=== PATIENT | female | born 1980 | race Caucasian/White ===

== ENCOUNTER 2017-02-09 21:46 | Emergency (ER) | payer OTHER ==
[2017-02-09 21:53] VITALS: BMI 29.2
--- NOTE | 2017-02-09 23:04 | DR.GENAD ---
HPI - PCP Primary Care Physician: jose busby - HPI Comment HPI Comment: PATIENT PASS OUT AT HOME TONIGHT. HAVING SEVERE HEADACHE SINCE. BEING HAVING HEADACHE BUT TONIGHT WORSE HEADACHE EVER. NO FEVER, NAUSEA OR VOMITING. NO DYSURIA. - Complaint/Symptoms Chief Complaint Doctors Comments: HEADACHE, PASS OUT. Chief Complaint:: PATIENT REPORTS THAT SHE WAS GETTING UP OUT OF BED AND WAS ANGRY AT HER SON AND BLACKED OUT. DENIES DIZZINESS. ADMITS TO HEADACHE. DENIES HEAD TRAUMA. - Nurses notes reviewed Nurses Notes Review: Yes - Source History Provided: Patient - Mode of Arrival Mode of Arrival: Ambulatory - Timing Onset of Chief Complaint: 02/09/17 Came on: Suddenly - Duration Duration: Since Onset Duration: Hours - Severity Severity: Moderate PMH - PMH Past Medical History: Yes Past Medical History: Seizures Past Surgical History: Yes Surgical History: Cholecystectomy, Hysterectomy - Family History History of Family Medical Conditions: Yes Family Medical History: Diabetes Mellitus - Social History Alcohol Use: None Do you use any recreational Drugs:: No Lives With: Family - infectious screening In the last 2 months have you had wt loss of >10#?: NO Have you had fever, night sweats or hemotysis?: No Have you traveled outside the country in the last 6 months?: No Isolation: Standard ROS - Review of Systems Constitutional: Weakness, Fatigue. negative: Chills, Fever Eyes: No Symptoms Reported. negative: Eye Pain, Discharge ENTM: No Symptoms Reported Respiratoy: No Symptoms Reported Cardiovascular: No Symptoms Reported Gastrointestinal/Abdominal: No Symptoms Reported Genitourinary: No Symptoms Reported Neurological: No Symptoms Reported Musculoskeletal: No Symptoms Reported Integumentary: No Symptoms Reported Hematologic/Lymphatic: No Symptoms Reported Endocrine: No Symptoms Reported All Other Systems: Reviewed and Negative PE - Vital Signs Vitals: Temperature 99.6 F Pulse Rate [Apical] 68 Pulse Rate 102 Respiratory Rate 16 Blood Pressure [Right Arm] 129/87 Blood Pressure 145/90 O2 Sat by Pulse Oximetry 100 - General Limitations: No Limitations General Appearance: Alert - Head Head Exam: Normal Inspection - Eyes Eye exam: Normal Appearance - ENT ENT Exam: Normal External Ear Exam External Ear Exam: Normal External Inspection TM/Canal Exam: Bilateral Normal Nose Exam: Normal Nose Exam Mouth Exam: Normal Inspection Throat Exam: Normal Inspection - Neck Neck Exam: Normal Inspection - Chest Chest Inspection: Symmetric Chest Wall Rise - Respiratory Respiratory Exam: Normal Lung Sounds Bilat Respiratory Exam: Bilateral Clear to Auscultation - Cardiovascular Cardiovascular Exam: Regular Rate, Normal Rhythm, Normal Heart Sounds - Abdominal Exam Abdominal Exam: Normal Bowel Sounds, Soft. negative: Tenderness - Extremities Extremities Exam: Normal Inspection - Back Back Exam: Normal Inspection - Neurologic Neurological Exam: Alert, Oriented X3, CN II-XII Intact, Normal Gait, Reflexes Normal. negative: Motor Sensory Deficit - Psychiatric Psychiatric Exam: Normal Affect, Normal Mood - Skin Skin Exam: Normal Color MDM - Differential Diagnosis Differential Diagnosis: SYNCOPAL EPISODE, HEADACHE, TIA, [place], Course - Treatment Treatment: SEE ORDERS. - Education/Counseling Education/Counseling: Patient, Education Educated On: Treatment, Diagnosis, Needs for Follow Up ROR - Labs Reviewed Laboratory Results Reviewed?: Yes Result Diagrams: 02/09/17 23:15 02/09/17 23:15 Laboratory: WBC 9.0 X10^3/uL (3.6-10.0) 02/09/17 23:15 RBC 4.30 X10^6/uL (3.5-5.4) 02/09/17 23:15 Hgb 13.0 g/dL (12.0-16.0) 02/09/17 23:15 Hct 36.6 % (36.0-47.0) 02/09/17 23:15 MCV 85.1 fL (80.0-100.0) 02/09/17 23:15 MCH 30.4 pg (27.0-34.0) 02/09/17 23:15 MCHC 35.7 g/dL (33.0-35.0) H 02/09/17 23:15 RDW 12.9 % (11.6-16.5) 02/09/17 23:15 Plt Count 354 X10^3/uL (150.0-450.0) 02/09/17 23:15 MPV 8.0 fL (7.4-11.0) 02/09/17 23:15 Neut % 66.1 % (42.0-75.0) 02/09/17 23:15 Lymph % 23.9 % (21.0-51.0) 02/09/17 23:15 [place] % 7.9 % (0.0-13.0) 02/09/17 23:15 Eos % 1.4 % (0.9-2.9) 02/09/17 23:15 Baso % 0.7 % (0.2-1.0) 02/09/17 23:15 Neut # 5.9 x10^3/uL (2.2-4.8) H 02/09/17 23:15 Lymph # 2.1 X10^3/uL (1.3-2.9) 02/09/17 23:15 [place] # 0.7 x10^3/uL (0.3-0.8) 02/09/17 23:15 Eos # 0.1 x10^3/uL (0.0-0.2) 02/09/17 23:15 Baso # 0.1 X10^3/uL (0.0-0.1) 02/09/17 23:15 Absolute Nucleated RBC 0.1 /100WBC 02/09/17 23:15 Sodium 142 mmol/L (136-145) 02/09/17 23:15 Corrected Sodium TNP 02/09/17 23:15 Potassium 3.5 mmol/L (3.5-5.1) 02/09/17 23:15 Chloride 105 mmol/L (98-107) 02/09/17 23:15 Carbon Dioxide 27.4 mmol/L (21-32) 02/09/17 23:15 BUN 8 mg/dL (7-18) 02/09/17 23:15 Creatinine 0.93 mg/dL (0.55-1.02) 02/09/17 23:15 Est GFR (MDRD) Af Amer > 60 (>60) 02/09/17 23:15 Est GFR (MDRD) Non-Af > 60 (>60) 02/09/17 23:15 Glucose 104 mg/dL (65-99) H 02/09/17 23:15 Calcium 8.7 mg/dL (8.5-10.1) 02/09/17 23:15 Corrected Calcium TNP 02/09/17 23:15 Total Bilirubin 0.40 mg/dL (0.2-1.0) 02/09/17 23:15 AST 16 Units/L (15-37) 02/09/17 23:15 ALT 20 Units/L (12-78) 02/09/17 23:15 Alkaline Phosphatase 60 Units/L (46-116) 02/09/17 23:15 Creatine Kinase 52 Units/L (26-192) 02/09/17 23:15 CK-MB (CK-2) < 1.0 ng/mL (0-4.0) 02/09/17 23:15 CK/CKMB % Calc 1.9 % (<4) 02/09/17 23:15 Troponin I < 0.02 ng/mL (0-1.5) 02/09/17 23:15 Total Protein 6.9 g/dL (6.4-8.2) 02/09/17 23:15 Albumin 3.5 g/dL (3.4-5.0) 02/09/17 23:15 Globulin 3.4 g/dL (2.5-4.5) 02/09/17 23:15 Albumin/Globulin Ratio 1.0 Ratio (1.1-2.1) L 02/09/17 23:15 - XRAY XRAY Interpreted by: Radiologist XRAY Findings: REPORT DISCUSS WITH PATIENT. - EKG Rhythm: NSR (EKG NOTED) - Diagnosis Discharge Problem: Syncope Qualifiers: Syncope type: unspecified Qualified Code(s): R55 - Syncope and collapse Headache Qualifiers: Headache type: unspecified Headache chronicity pattern: acute headache Intractability: intractable Qualified Code(s): R51 - Headache - Discharge Plan Disposition: 01 HOME, SELF-CARE Condition: Stable - Follow ups/Referrals Follow ups/Referrals: NFD,None [Primary Care Provider] - 3 days MIGUELINA SOLIZ [STAFF PHYSICIAN] - 3 days - Instructions Instructions: Headache and Arthritis, Syncope, Eixf-ag-Pawy Additional Instructions: RETURN TO ED IF WORSE.
[2017-02-09 23:24] LABS: BASOPHILS # (AUTO) 0.1 X10^3/uL (0.0-0.1); BASOPHILS % (AUTO) 0.7 % (0.2-1.0); EOSINOPHILS # (AUTO) 0.1 x10^3/uL (0.0-0.2); EOSINOPHILS % (AUTO) 1.4 % (0.9-2.9); HEMATOCRIT 36.6 % (36.0-47.0); LYMPHOCYTES # (AUTO) 2.1 X10^3/uL (1.3-2.9); LYMPHOCYTES % (AUTO) 23.9 % (21.0-51.0); MEAN CORPUSCULAR HEMOGLOBIN 30.4 pg (27.0-34.0); MEAN CORPUSCULAR HGB CONC 35.7 g/dL (33.0-35.0); MEAN CORPUSCULAR VOLUME 85.1 fL (80.0-100.0); MONOCYTES # (AUTO) 0.7 x10^3/uL (0.3-0.8); MONOCYTES % (AUTO) 7.9 % (0.0-13.0); NEUTROPHILS # (AUTO) 5.9 x10^3/uL (2.2-4.8); NEUTROPHILS % (AUTO) 66.1 % (42.0-75.0); PLATELET COUNT 354 X10^3/uL (150.0-450.0); RED CELL DISTRIBUTION WIDTH 12.9 % (11.6-16.5)
[2017-02-09 23:37] LABS: BLOOD UREA NITROGEN 8 mg/dL (7-18); CALCIUM 8.7 mg/dL (8.5-10.1); CARBON DIOXIDE 27.4 mmol/L (21-32); CHLORIDE 105 mmol/L (98-107); CREATININE 0.93 mg/dL (0.55-1.02); SODIUM 142 mmol/L (136-145); TROPONIN I < 0.02 ng/mL (0-1.5); eGFR BLACK RACES > 60 (>60); eGFR NON BLACK RACES > 60 (>60)
--- NOTE | 2017-02-09 23:40 | CT ---
EXAM: CT BRAIN WITHOUT CONTRAST INDICATION: Headache COMPARISION: No Priors TECHNIQUE: Routine axial CT of the brain was performed without intravenous contrast. FINDINGS: The cerebral and cerebellar cortex are normal. The ventricular system is nondilated. No intra or extr a-axial mass or hemorrhage. The schafer-white junction is preserved. There is no evidence of subacute is chemic change. The basilar cisterns are clear. The skull is intact. The mastoid air cells are clear. IMPRESSION: Normal brain CT examination Reported By:
[2017-02-09 23:42] LABS: ALANINE AMINOTRANSFERASE 20 Units/L (12-78); ALBUMIN 3.5 g/dL (3.4-5.0); ALKALINE PHOSPHATASE 60 Units/L (46-116); ASPARTATE AMINO TRANSFERASE 16 Units/L (15-37); CKMB % 1.9 % (<4); CREATINE KINASE 52 Units/L (26-192); CREATINE KINASE MB < 1.0 ng/mL (0-4.0); TOTAL PROTEIN 6.9 g/dL (6.4-8.2)
[2017-02-10 00:04] VITALS: BP 129/87
== END 2017-02-10 00:01 | disposition home or self-care (01) ==
LOC: ER 21:46
DX: R55 Syncope and collapse (principal); R51 Headache
CPT/HCPCS: 36415; 70450; 80053; 82550; 82553; 84484; 85025; 93005; 93010; 96365; 99283

== ENCOUNTER 2017-05-04 13:08 | Emergency (ER) | payer OTHER ==
[2017-05-04 13:15] VITALS: BP 129/79; BMI 31.7
[2017-05-04 13:39] LABS: ALANINE AMINOTRANSFERASE 32 Units/L (12-78); ALBUMIN 3.9 g/dL (3.4-5.0); ALKALINE PHOSPHATASE 77 Units/L (46-116); ASPARTATE AMINO TRANSFERASE 19 Units/L (15-37); BLOOD UREA NITROGEN 11 mg/dL (7-18); CHLORIDE 103 mmol/L (98-107); CREATININE 0.83 mg/dL (0.55-1.02); SODIUM 138 mmol/L (136-145); eGFR BLACK RACES > 60 (>60); eGFR NON BLACK RACES > 60 (>60)
--- NOTE | 2017-05-04 13:41 | DR.SEIZA ---
HPI - Time Seen Time seen: 13:35 - Primary Care Physician Primary Care Physician: jose busby - Complaints Chief Complaint Doctors Comments: Patient reports that she was at work and felt weak and reported that she felt like she was going to have a seizure. She has a history of seizure disorder but has been out of her medication for 2-3 weeks. She take dilantid tid. She has not seen a physician in a while. She does not remember remember seeing a neurologist. Chief Complaint:: patient stated she was at work and had a seizure. patient stated she is supposed to be on dilantin, but has been out for the last 3 days but has a apointment with her pcp tomorrow. - Source History Provided: Patient - Mode of Arrival Mode of Arrival: EMS - Timing Onset of Chief Complaint: 05/04/17 PMH - PMH Past Medical History: Yes Past Medical History: Seizures Past Surgical History: Yes Surgical History: Cholecystectomy, Hysterectomy - Family History History of Family Medical Conditions: Yes Family Medical History: Diabetes Mellitus - Social History Does patient currently use any type of tobacco product: No Have you used tobacco products in the last 12 months: No Type of Tobacco Use: None Does any household member use tobacco: No Alcohol Use: None Do you use any recreational Drugs:: No Lives With: Family Lives Where: Home - infectious screening In the last 2 months have you had wt loss of >10#?: NO Have you had fever, night sweats or hemotysis?: No Have you traveled outside the country in the last 6 months?: No Isolation: Standard ROS - Review of Systems Eyes: No Symptoms Reported ENTM: No Symptoms Reported Respiratoy: No Symptoms Reported Cardiovascular: No Symptoms Reported Gastrointestinal/Abdominal: No Symptoms Reported Genitourinary: No Symptoms Reported Neurological: No Symptoms Reported Musculoskeletal: No Symptoms Reported Integumentary: No Symptoms Reported Hematologic/Lymphatic: No Symptoms Reported Endocrine: No Symptoms Reported Psychiatric: No Symptoms Reported All Other Systems: Reviewed and Negative PE - Vital Signs Vitals: Temperature 98.7 F Pulse Rate 91 Respiratory Rate 16 Blood Pressure [Right Arm] 129/87 Blood Pressure 129/79 O2 Sat by Pulse Oximetry 98 - General Limitations: No Limitations General Appearance: Alert, In No Apparent Distress - Head Head Exam: Normal Inspection, Atraumatic Head Exam Physical: negative: Laceration, Abrasion, Contusion, Hematoma, Raccoon Eyes, Vernon's Sign, Tenderness of Temporal Artery, CSF Rhinorrhea, CSF Otorrhea, Other - Eyes Eye exam: Normal Appearance, PERRL, EOMI Eyelids: Normal Inspection: Bilateral Pupils: Regular, Round: Bilateral Sclera/Conjunctival: Normal Inspection: Bilateral Anterior Chamber: Normal Inspection: Bilateral - ENT ENT Exam: Normal Exam, Normal Oropharynx, Normal External Ear Exam Mouth Exam: Normal Inspection - Neck Neck Exam: Normal Inspection, Full ROM - Chest Chest Inspection: Normal Inspection - Respiratory Respiratory Exam: Normal Lung Sounds Bilat Respiratory Exam: Bilateral Clear to Auscultation - Cardiovascular Cardiovascular Exam: Regular Rate, Normal Rhythm - Abdominal Exam Abdominal Exam: Normal Inspection Abdominal Tenderness: LLQ, Suprapubic. negative: RUQ, RLQ, LUQ, Epigastrium, Diffuse, Mild, Moderate, Severe, Other - Extremities Extremities Exam: Normal Inspection, Full ROM - Back Back Exam: Normal Inspection, Full ROM - Neurologic Neurological Exam: Alert, Oriented X3, CN II-XII Intact Speech: Fluid Speech Cranial Nerve Exam: EOM Function (II, III, IV, ): Normal Cerebellar Function: Finger to Nose: Normal, Heel to Martin: Normal Cerebellar Function: Normal Gait Motor Strength - RUE: 3/5 Motor Strength - LLE: 3/5 - Psychiatric Psychiatric Exam: Normal Affect, Normal Mood - Skin Skin Exam: Warm, Dry, Intact Course - Treatment Treatment: Pheyntoin ~ 10mg/kg - Reevaluation 1st: Improved - Education/Counseling Educated On: Treatment, Diagnosis, Prognosis, Needs for Follow Up ROR - Labs Reviewed Laboratory Results Reviewed?: Yes (phenytoin level 0.08) Result Diagrams: 05/04/17 13:18 05/04/17 13:18 Laboratory: WBC 8.0 X10^3/uL (3.6-10.0) 05/04/17 13:18 RBC 4.73 X10^6/uL (3.5-5.4) 05/04/17 13:18 Hgb 14.4 g/dL (12.0-16.0) 05/04/17 13:18 Hct 40.4 % (36.0-47.0) 05/04/17 13:18 MCV 85.5 fL (80.0-100.0) 05/04/17 13:18 MCH 30.4 pg (27.0-34.0) 05/04/17 13:18 MCHC 35.6 g/dL (33.0-35.0) H 05/04/17 13:18 RDW 12.6 % (11.6-16.5) 05/04/17 13:18 Plt Count 338 X10^3/uL (150.0-450.0) 05/04/17 13:18 MPV 8.6 fL (7.4-11.0) 05/04/17 13:18 Neut % 59.3 % (42.0-75.0) 05/04/17 13:18 Lymph % 26.4 % (21.0-51.0) 05/04/17 13:18 [place] % 8.5 % (0.0-13.0) 05/04/17 13:18 Eos % 4.4 % (0.9-2.9) H 05/04/17 13:18 Baso % 1.4 % (0.2-1.0) H 05/04/17 13:18 Neut # 4.7 x10^3/uL (2.2-4.8) 05/04/17 13:18 Lymph # 2.1 X10^3/uL (1.3-2.9) 05/04/17 13:18 [place] # 0.7 x10^3/uL (0.3-0.8) 05/04/17 13:18 Eos # 0.4 x10^3/uL (0.0-0.2) H 05/04/17 13:18 Baso # 0.1 X10^3/uL (0.0-0.1) 05/04/17 13:18 Absolute Nucleated RBC 0.1 /100WBC 05/04/17 13:18 Sodium 138 mmol/L (136-145) 05/04/17 13:18 Corrected Sodium TNP 05/04/17 13:18 Potassium 3.9 mmol/L (3.5-5.1) 05/04/17 13:18 Chloride 103 mmol/L (98-107) 05/04/17 13:18 Carbon Dioxide 26.0 mmol/L (21-32) 05/04/17 13:18 BUN 11 mg/dL (7-18) 05/04/17 13:18 Creatinine 0.83 mg/dL (0.55-1.02) 05/04/17 13:18 Est GFR (MDRD) Af Amer > 60 (>60) 05/04/17 13:18 Est GFR (MDRD) Non-Af > 60 (>60) 05/04/17 13:18 Glucose 98 mg/dL (65-99) 05/04/17 13:18 Calcium 9.0 mg/dL (8.5-10.1) 05/04/17 13:18 Corrected Calcium TNP 05/04/17 13:18 Total Bilirubin 0.80 mg/dL (0.2-1.0) 05/04/17 13:18 AST 19 Units/L (15-37) 05/04/17 13:18 ALT 32 Units/L (12-78) 05/04/17 13:18 Alkaline Phosphatase 77 Units/L (46-116) 05/04/17 13:18 Total Protein 8.0 g/dL (6.4-8.2) 05/04/17 13:18 Albumin 3.9 g/dL (3.4-5.0) 05/04/17 13:18 Globulin 4.1 g/dL (2.5-4.5) 05/04/17 13:18 Albumin/Globulin Ratio 1.0 Ratio (1.1-2.1) L 05/04/17 13:18 Phenytoin 0.8 ug/mL (10-20) L 05/04/17 13:18 - Diagnosis Discharge Problem: Seizure disorder, Seizure secondary to subtherapeutic anticonvulsant medication - Discharge Plan Condition: Stable - Follow ups/Referrals Follow ups/Referrals: NFD,None [Primary Care Provider] - 3 days - Instructions
[2017-05-04 13:42] LABS: BASOPHILS # (AUTO) 0.1 X10^3/uL (0.0-0.1); BASOPHILS % (AUTO) 1.4 % (0.2-1.0); EOSINOPHILS # (AUTO) 0.4 x10^3/uL (0.0-0.2); EOSINOPHILS % (AUTO) 4.4 % (0.9-2.9); HEMATOCRIT 40.4 % (36.0-47.0); HEMOGLOBIN 14.4 g/dL (12.0-16.0); LYMPHOCYTES # (AUTO) 2.1 X10^3/uL (1.3-2.9); LYMPHOCYTES % (AUTO) 26.4 % (21.0-51.0); MEAN CORPUSCULAR HEMOGLOBIN 30.4 pg (27.0-34.0); MEAN CORPUSCULAR HGB CONC 35.6 g/dL (33.0-35.0); MEAN CORPUSCULAR VOLUME 85.5 fL (80.0-100.0); MEAN PLATELET VOLUME 8.6 fL (7.4-11.0); MONOCYTES # (AUTO) 0.7 x10^3/uL (0.3-0.8); MONOCYTES % (AUTO) 8.5 % (0.0-13.0); NEUTROPHILS # (AUTO) 4.7 x10^3/uL (2.2-4.8); NEUTROPHILS % (AUTO) 59.3 % (42.0-75.0); PLATELET COUNT 338 X10^3/uL (150.0-450.0); RED BLOOD COUNT 4.73 X10^6/uL (3.5-5.4); RED CELL DISTRIBUTION WIDTH 12.6 % (11.6-16.5)
[2017-05-04] MEDS ORDERED: CEREBYX INJ IVP ONE (14:04)
[2017-05-04] MEDS ORDERED: NS 100 ML IV 100 ML IV ONE (14:06)
[2017-05-04] MEDS ORDERED: CEREBYX INJ ONE (14:07)
[2017-05-04] MEDS ORDERED: DILANTIN CAP 100 MG EXT REL PO SCH (16:00)
== END 2017-05-04 15:33 | disposition home or self-care (01) ==
LOC: ER 13:08
DX: G40.909 Epilepsy, unspecified, not intractable, without status epilepticus (principal)
CPT/HCPCS: 36415; 80053; 80185; 85025; 96365; 96374; 99282; 99283; S0078

== ENCOUNTER 2022-05-09 17:31 | Observation (INO) ==
--- NOTE | 2022-05-09 18:04 | DR.CP ---
HPI Time Seen Time Seen by Provider: 05/09/22 18:04 PCP Primary Care Physician: MICHEL DU Complaint Chief Complaint Doctor Comments: 41 y/o female presents for evaluation. Has been having nausea, vomiting for the past 2 days. Developed R chest pain tonight at work. + radiates to the right neck. + worse with moving. Nothing makes it better. Having some shortness of breath. Denies fever, cough, diarrhea. Chief Complaint:: N/V X2 DAYS, TINGLING IN FINGERS STARTED TODAY, CHEST PAIN STARTED TODAY, DESCRIBES MIDSTERNAL PAIN THRU TO BACK AND RIGHT SIDE OF NECK. C/O SOB WITH EXERTION ALSO STARTED TODAY Self Treatment fo Chief Complaint: TAKES MEDS FOR SEIZURES AND HTN AND DID TAKE MEDS THIS MORNING BUT HAS THROWN ALL MEDS UP; "CAN'T HOLD ANYTHING DOWN" COVID-19 Coronavirus risk:travel/contact w/high risk person: No Has patient experienced Coronavirus symptoms: No Source History Provided: Patient Mode of Arrival Mode of Arrival: Ambulatory Timing Onset of Chief Complaint: 05/09/22 Location Chest Pain Radiation Location: Right Shoulder and Neck Associated Signs and Symptoms Associated Signs and Symptoms: Shortness of Breath and Nausea/Vomiting PMH PMH Past Medical History: Yes Past Medical History: Hypertension and Seizures Past Surgical History: Yes Surgical History: Cholecystectomy and Hysterectomy Family History History of Family Medical Conditions: Yes Family Medical History: Diabetes Mellitus Social History Does any household member use tobacco: No Alcohol Use: None Do you use any recreational Drugs:: No Lives With: Spouse and Family Lives Where: Home Travel Risk Coronavirus risk:travel/contact w/high risk person: No Has patient experienced Coronavirus symptoms: No Infectious screening Have you traveled outside the country in the last 6 months?: No Isolation: Standard ROS Review of Systems Constitutional: No Symptoms Reported Eyes: No Symptoms Reported ENTM: No Symptoms Reported Respiratoy: Short of Breath Cardiovascular: Chest Pain and Palpitations Gastrointestinal/Abdominal: Nausea and Vomiting Genitourinary: No Symptoms Reported Neurological: No Symptoms Reported Musculoskeletal: No Symptoms Reported Integumentary: No Symptoms Reported Hematologic/Lymphatic: No Symptoms Reported Psychiatric: No Symptoms Reported PE Vitals Vitals: Temperature 98.3 F Pulse Rate 98 Respiratory Rate 22 Blood Pressure [Right Arm] 162/94 Blood Pressure 156/95 O2 Sat by Pulse Oximetry 98 General General Appearance: Alert and In No Apparent Distress Eyes Eye exam: PERRL and EOMI ENT ENT Exam: Normal Oropharynx and Mucous Membranes Moist Chest Chest Inspection: Tenderness (right anterior chest wall) Respiratory Respiratory Exam: Normal Lung Sounds Bilat; negative Accessory Muscle Use or Respiratory Distress Respiratory Exam: Bilateral: Clear to Auscultation Cardiovascular Cardiovascular Exam: Regular Rate, Normal Rhythm and Normal Heart Sounds Abdominal Exam Abdominal Exam: Normal Inspection, Normal Bowel Sounds and Soft; negative Tenderness Extremities Extremities Exam: Normal Inspection and Full ROM; negative Tenderness Back Back Exam: Normal Inspection and Full ROM; negative Tenderness Neurologic Neurological Exam: Alert, Oriented X3 and CN II-XII Intact; negative Motor Sensory Deficit Skin Skin Exam: Warm and Dry COURSE Treatment Treatment: 41 y/o female with 2 days of vomiting, now with R chest pain today. W/u initiated. Given IV fluids. IV zofran, IV morphine. Labs acceptable. CXR/EKG good. Pt was resting, awoke with sudden stabbing pain, tachycardia. HR 180, ordered trial of cardizem, but came down to mild tachycardia on its own. P t concerned has been unable to keep her dilantin down. Level very subtherapeutic. Givne IV loading dose of fosphenytoin, will restart oral dilantin in the am. Discussed with Dr Sagastume, will admit for observation in view of her episodes of tachycardia, pain and vomiting. ROR Labs Reviewed Result Diagrams: 05/09/22 18:18 05/09/22 18:18 Laboratory: WBC 10.1 X10^3/uL (3.6-10.0) H 05/09/22 18:18 RBC 4.51 X10^6/uL (3.5-5.4) 05/09/22 18:18 Hgb 13.7 g/dL (12.0-16.0) 05/09/22 18:18 Hct 38.9 % (36.0-47.0) 05/09/22 18:18 MCV 86.2 fL (80.0-100.0) 05/09/22 18:18 MCH 30.3 pg (27.0-34.0) 05/09/22 18:18 MCHC 35.2 g/dL (33.0-35.0) H 05/09/22 18:18 RDW 13.5 % (11.6-16.5) 05/09/22 18:18 Plt Count 391 X10^3/uL (150.0-450.0) 05/09/22 18:18 MPV 8.0 fL (7.4-11.0) 05/09/22 18:18 Neut % (Auto) 63.6 % (42.0-75.0) 05/09/22 18:18 Lymph % (Auto) 28.2 % (21.0-51.0) 05/09/22 18:18 [place] % (Auto) 6.3 % (0.0-13.0) 05/09/22 18:18 Eos % (Auto) 1.1 % (0.9-2.9) 05/09/22 18:18 Baso % (Auto) 0.8 % (0.2-1.0) 05/09/22 18:18 Neut # (Auto) 6.4 x10^3/uL (2.2-4.8) H 05/09/22 18:18 Lymph # (Auto) 2.8 X10^3/uL (1.3-2.9) 05/09/22 18:18 [place] # (Auto) 0.6 x10^3/uL (0.3-0.8) 05/09/22 18:18 Eos # (Auto) 0.1 x10^3/uL (0.0-0.2) 05/09/22 18:18 Baso # (Auto) 0.1 X10^3/uL (0.0-0.1) 05/09/22 18:18 Absolute Nucleated RBC 0.0 /100WBC 05/09/22 18:18 D-Dimer 0.43 ug/ml (0.0-0.57) 05/09/22 18:18 Sodium 138 mmol/L (136-145) 05/09/22 18:18 Corrected Sodium TNP 05/09/22 18:18 Potassium 4.0 mmol/L (3.5-5.1) 05/09/22 18:18 Chloride 102 mmol/L (98-107) 05/09/22 18:18 Carbon Dioxide 25.4 mmol/L (21-32) 05/09/22 18:18 BUN 8 mg/dL (7-18) 05/09/22 18:18 Creatinine 0.86 mg/dL (0.55-1.02) 05/09/22 18:18 Est GFR (MDRD) Af Amer > 60 (>60) 05/09/22 18:18 Est GFR (MDRD) Non-Af > 60 (>60) 05/09/22 18:18 Glucose 103 mg/dL (65-99) H 05/09/22 18:18 Calcium 8.5 mg/dL (8.5-10.1) 05/09/22 18:18 Corrected Calcium TNP 05/09/22 18:18 Total Bilirubin 0.50 mg/dL (0.2-1.0) 05/09/22 18:18 AST 17 Units/L (15-37) 05/09/22 18:18 ALT 23 Units/L (12-78) 05/09/22 18:18 Alkaline Phosphatase 79 Units/L (46-116) 05/09/22 18:18 Creatine Kinase 55 Units/L (26-192) 05/09/22 20:40 Troponin I High Sens 5.1 ng/L (4.0-60.0) 05/09/22 20:40 Total Protein 7.6 g/dL (6.4-8.2) 05/09/22 18:18 Albumin 3.9 g/dL (3.4-5.0) 05/09/22 18:18 Globulin 3.7 g/dL (2.5-4.5) 05/09/22 18:18 Albumin/Globulin Ratio 1.1 Ratio (1.1-2.1) 05/09/22 18:18 Lipase 70 Units/L (73-393) L 05/09/22 18:18 Phenytoin < 0.5 ug/mL (10-20) L 05/09/22 20:40 EKG Rate: 125 [place]: Normal Rhythm: ST Block: None ST: Normal Opioid Opioid Risk Tool Age (Praveen box if 16-45): Yes History of Preadolescent Sexual Abuse: No Total: 1 Total Score Risk Category: Low Risk Copyright: Colt PATINO predicting aberrant behaviors Discharge Plan Diagnosis Discharge Problem: SVT (supraventricular tachycardia), Chest pain, Vomiting Discharge Plan Patient Disposition: ADMITTED INPATIENT Condition: Stable
--- NOTE | 2022-05-09 18:07 | EKG ---
Test Reason : CHEST PAIN Blood Pressure : */* mmHG Vent. Rate : 125 BPM Atrial Rate : 125 BPM P-R Int : 144 ms QRS Dur : 82 ms QT Int : 310 ms P-R-T Axes : 37 32 -40 degrees QTc Int : 447 ms Sinus tachycardia Cannot rule out Inferior infarct , age undetermined Abnormal ECG No previous ECGs available Confirmed by Chris Odonnell ([id number]) on 05/12/2022 9:22:45 AM Referred By: Confirmed By: Chris Odonnell
[2022-05-09] MEDS ORDERED: NS 1,000 ML IV 1,000 ML IV ONE ×2 (18:09→20:12)
[2022-05-09] MEDS ORDERED: TORADOL 30 MG VIAL IVP ONE (18:09)
[2022-05-09] MEDS ORDERED: ZOFRAN INJ 4 MG VIAL IVP ONE ×2 (18:09→21:54)
[2022-05-09] MEDS ORDERED: NS 1,000 ML IV 1,000 ML ONE ×2 (18:22→20:09)
[2022-05-09] MEDS ORDERED: TORADOL 30 MG VIAL ONE (18:22)
[2022-05-09] MEDS ORDERED: ZOFRAN INJ 4 MG VIAL ONE ×2 (18:22→21:55)
[2022-05-09 18:30] LABS: BASOPHILS # (AUTO) 0.1 X10^3/uL (0.0-0.1); BASOPHILS % (AUTO) 0.8 % (0.2-1.0); EOSINOPHILS # (AUTO) 0.1 x10^3/uL (0.0-0.2); EOSINOPHILS % (AUTO) 1.1 % (0.9-2.9); HEMATOCRIT 38.9 % (36.0-47.0); HEMOGLOBIN 13.7 g/dL (12.0-16.0); LYMPHOCYTES # (AUTO) 2.8 X10^3/uL (1.3-2.9); LYMPHOCYTES % (AUTO) 28.2 % (21.0-51.0); MEAN CORPUSCULAR HEMOGLOBIN 30.3 pg (27.0-34.0); MEAN CORPUSCULAR HGB CONC 35.2 g/dL (33.0-35.0); MEAN CORPUSCULAR VOLUME 86.2 fL (80.0-100.0); MONOCYTES # (AUTO) 0.6 x10^3/uL (0.3-0.8); MONOCYTES % (AUTO) 6.3 % (0.0-13.0); NEUTROPHILS # (AUTO) 6.4 x10^3/uL (2.2-4.8); NEUTROPHILS % (AUTO) 63.6 % (42.0-75.0); RED BLOOD COUNT 4.51 X10^6/uL (3.5-5.4); RED CELL DISTRIBUTION WIDTH 13.5 % (11.6-16.5); WHITE BLOOD COUNT 10.1 X10^3/uL (3.6-10.0)
[2022-05-09 18:38] LABS: ALANINE AMINOTRANSFERASE 23 Units/L (12-78); ALBUMIN 3.9 g/dL (3.4-5.0); ALKALINE PHOSPHATASE 79 Units/L (46-116); ASPARTATE AMINO TRANSFERASE 17 Units/L (15-37); BLOOD UREA NITROGEN 8 mg/dL (7-18); CALCIUM 8.5 mg/dL (8.5-10.1); CARBON DIOXIDE 25.4 mmol/L (21-32); CHLORIDE 102 mmol/L (98-107); CREATININE 0.86 mg/dL (0.55-1.02); LIPASE 70 Units/L (73-393); SODIUM 138 mmol/L (136-145); TOTAL PROTEIN 7.6 g/dL (6.4-8.2); eGFR NON BLACK RACES > 60 (>60)
[2022-05-09] MEDS ORDERED: CARDIZEM INJ 50 MG VIAL IVP ONE (20:08)
[2022-05-09] MEDS ORDERED: MORPHINE SULFATE INJ 4 MG IVP ONE (20:14)
[2022-05-09] MEDS ORDERED: MORPHINE SULFATE INJ 4 MG ONE (20:18)
--- NOTE | 2022-05-09 20:36 | EKG ---
Test Reason : CHEST PAIN Blood Pressure : */* mmHG Vent. Rate : 133 BPM Atrial Rate : 133 BPM P-R Int : 134 ms QRS Dur : 78 ms QT Int : 292 ms P-R-T Axes : 58 19 -44 degrees QTc Int : 434 ms Sinus tachycardia Cannot rule out Inferior infarct (cited on or before 09-MAY-2022) Abnormal ECG When compared with ECG of 09-MAY-2022 18:05, (Unconfirmed) No significant change was found Confirmed by Chris Odonnell ([id number]) on 05/12/2022 9:22:41 AM Referred By: Confirmed By: Chris Odonnell
[2022-05-09] MEDS ORDERED: ATIVAN INJ 2 MG VIAL IVP ONE (21:31)
[2022-05-09] MEDS ORDERED: ATIVAN INJ 2 MG VIAL ONE (21:47)
[2022-05-09] MEDS ORDERED: CEREBYX INJ IV ONE (22:05)
[2022-05-09] MEDS ORDERED: NS 100 ML IV 100 ML ONE (22:14)
[2022-05-09] MEDS ORDERED: CEREBYX INJ ONE (22:14)
[2022-05-09] MEDS ORDERED: ZOFRAN INJ 4 MG VIAL IVP SCH (23:00)
[2022-05-09 23:07] VITALS: BMI 27.5
[2022-05-09] MEDS ORDERED: ZOFRAN INJ 4 MG VIAL IVP PRN (23:29)
[2022-05-10] MEDS ORDERED: PHENERGAN INJ 25 MG IM ONE (01:53)
[2022-05-10 01:56] LABS: BILIRUBIN,URINE NEGATIVE (NEGATIVE); BLOOD/HEMOGLOBIN,URINE 3+ (NEGATIVE); GLUCOSE, URINE NEGATIVE (NEGATIVE); KETONES,URINE NEGATIVE (NEGATIVE); LEUKOCYTE ESTERASE ,URINE 2+ (NEGATIVE); NITRITES,URINE NEGATIVE (NEGATIVE); PH,URINE 6.5 (5.0 - 8.0); PROTEIN,URINE NEGATIVE (NEGATIVE); UROBILINOGEN,URINE NORMAL (NORMAL)
[2022-05-10 02:00] LABS: APPEARANCE,URINE CLEAR (CLEAR); COLOR,URINE PALE YELLOW (YELLOW)
[2022-05-10 02:01] LABS: BACTERIA,URINE TRACE /HPF (NEGATIVE); SQUAMOUS EPITHELIAL CELL,UR FEW /HPF (NEGATIVE)
[2022-05-10] MEDS: PHENERGAN INJ 25 MG IM PRN ×3 (02:19→18:04)
[2022-05-10] MEDS: MORPHINE SULFATE INJ 2 MG INJ IVP PRN ×4 (05:00→18:03)
[2022-05-10 05:10] LABS: BASOPHILS # (AUTO) 0.1 X10^3/uL (0.0-0.1); BASOPHILS % (AUTO) 0.7 % (0.2-1.0); EOSINOPHILS # (AUTO) 0.1 x10^3/uL (0.0-0.2); EOSINOPHILS % (AUTO) 1.7 % (0.9-2.9); HEMATOCRIT 35.7 % (36.0-47.0); HEMOGLOBIN 12.5 g/dL (12.0-16.0); LYMPHOCYTES # (AUTO) 2.3 X10^3/uL (1.3-2.9); LYMPHOCYTES % (AUTO) 31.7 % (21.0-51.0); MEAN CORPUSCULAR HEMOGLOBIN 30.7 pg (27.0-34.0); MEAN CORPUSCULAR HGB CONC 35.1 g/dL (33.0-35.0); MEAN CORPUSCULAR VOLUME 87.7 fL (80.0-100.0); MEAN PLATELET VOLUME 8.4 fL (7.4-11.0); MONOCYTES # (AUTO) 0.6 x10^3/uL (0.3-0.8); MONOCYTES % (AUTO) 7.8 % (0.0-13.0); NEUTROPHILS # (AUTO) 4.2 x10^3/uL (2.2-4.8); NEUTROPHILS % (AUTO) 58.1 % (42.0-75.0); RED BLOOD COUNT 4.07 X10^6/uL (3.5-5.4); RED CELL DISTRIBUTION WIDTH 13.6 % (11.6-16.5); WHITE BLOOD COUNT 7.2 X10^3/uL (3.6-10.0)
[2022-05-10 05:25] LABS: ALANINE AMINOTRANSFERASE 29 Units/L (12-78); ALBUMIN 3.2 g/dL (3.4-5.0); ALKALINE PHOSPHATASE 67 Units/L (46-116); ASPARTATE AMINO TRANSFERASE 27 Units/L (15-37); BLOOD UREA NITROGEN 6 mg/dL (7-18); CALCIUM 7.9 mg/dL (8.5-10.1); CARBON DIOXIDE 26.2 mmol/L (21-32); CHLORIDE 105 mmol/L (98-107); CHOL/HDL RATIO 3.1 (0.0-5.0); CHOLESTEROL 157 mg/dL (0-200); COR CA(FOR HYPOALB) 8.5 mg/dL (8.5-10.1); CREATININE 0.75 mg/dL (0.55-1.02); HDL CHOLESTEROL 51 mg/dL (40-60); SODIUM 139 mmol/L (136-145); TOTAL PROTEIN 6.5 g/dL (6.4-8.2); TRIGLYCERIDES 45 mg/dL (0-150); eGFR NON BLACK RACES > 60 (>60)
--- NOTE | 2022-05-10 05:33 | RAD ---
STUDY: FRONTAL VIEW CHESTCOMPARISON: 02/18/2022HISTORY: N/V X2 DAYS, TINGLING IN FINGERS STARTED TODAY, CHEST PAIN STARTED TODAY, DESCRIBES MIDSTERNAL PAIN THRU TO BACK AND RIGHT SIDE OF NECKFINDINGS:Elevation of the right hemidiaphragm is noted similar in appearance to the prior exam.No focal consolidation is seen.The heart size is within normal limits.The mediastinum is unremarkable.There is no evidence of pleural effusion or gross pneumothorax.The trachea is midline.IMPRESSION:1. No focal consolidation is seen.2. The heart size is normal.Electronically signed by: Bryan Crocker (May 10, 2022 05:32:01)
[2022-05-10] MEDS ORDERED: DILANTIN INFATAB 50 MG PO SCH (06:00)
[2022-05-10] MEDS ORDERED: LEVSIN/MAALOX/LIDOC VISC PO ONE (07:26)
[2022-05-10] MEDS ORDERED: ZOFRAN TAB 4 MG PO PRN (09:20)
[2022-05-10] MEDS: PROTONIX INJ 40 MG VIAL IVP SCH ×2 (09:33→20:09)
[2022-05-10] MEDS: PEPCID 20 MG VIAL 20 MG in NS 50 ML IV 50 ML IV SCH ×2 (09:33→20:08)
--- NOTE | 2022-05-10 09:38 | EKG ---
Test Reason : CP Blood Pressure : */* mmHG Vent. Rate : 87 BPM Atrial Rate : 87 BPM P-R Int : 152 ms QRS Dur : 76 ms QT Int : 378 ms P-R-T Axes : 15 19 -22 degrees QTc Int : 454 ms Normal sinus rhythm with sinus arrhythmia Cannot rule out Inferior infarct (cited on or before 09-MAY-2022) Abnormal ECG When compared with ECG of 09-MAY-2022 20:34, (Unconfirmed) Vent. rate has decreased BY 46 BPM Confirmed by Chris Odonnell ([id number]) on 05/12/2022 9:21:59 AM Referred By: Confirmed By: Chris Odonnell
[2022-05-10] MEDS ORDERED: CEREBYX INJ 200 MG in NS 50 ML IV 50 ML IV SCH (10:00)
[2022-05-10] MEDS: TOPROL XL PO SCH (10:08)
[2022-05-10] MEDS: LEVSIN/MAALOX/LIDOC VISC PO SCH ×3 (14:14→20:07)
--- NOTE | 2022-05-10 17:24 | EKG ---
Test Reason : CHEST PAIN Blood Pressure : */* mmHG Vent. Rate : 61 BPM Atrial Rate : 61 BPM P-R Int : 150 ms QRS Dur : 78 ms QT Int : 394 ms P-R-T Axes : -25 24 -16 degrees QTc Int : 396 ms Normal sinus rhythm Nonspecific T wave abnormality Abnormal ECG When compared with ECG of 10-MAY-2022 09:31, (Unconfirmed) QT has shortened Confirmed by Chris Odonnell ([id number]) on 05/12/2022 9:21:19 AM Referred By: Confirmed By: Chris Odonnell
--- NOTE | 2022-05-11 00:08 | EKG ---
Test Reason : CP Blood Pressure : */* mmHG Vent. Rate : 58 BPM Atrial Rate : 58 BPM P-R Int : 142 ms QRS Dur : 76 ms QT Int : 414 ms P-R-T Axes : -8 39 1 degrees QTc Int : 406 ms Sinus bradycardia Low voltage QRS Borderline ECG When compared with ECG of 10-MAY-2022 17:16, (Unconfirmed) Nonspecific T wave abnormality no longer evident in Lateral leads Confirmed by Chris Odonnell ([id number]) on 05/12/2022 9:21:08 AM Referred By: Confirmed By: Chris Odonnell
--- NOTE | 2022-05-11 00:30 | DR.H&P ---
H&P - History & Physical for Day of: H&P Date: 05/09/22 - Chief Complaint Chief Complaint: CHEST PAIN, EPIGASTRIC PAIN, SOB, NAUSEA/VOMITING - History of Present Illness History of Present Illness: IS A 41 YEAR OLD PATIENT OF [employer]. SHE PRESENTED TO THE ER WITH COMPLAINTS OF NAUSEA, VOMITING, RIGHT SIDED AND SUBSTERNAL CHEST PAIN, AND EPIGASTRIC PAIN. SHE REPORTS THAT HER SYMPTOMS STARTED TWO DAYS AGO. CHEST PAIN IS REPORTEDLY WORSE WITH MOVEMENT AND RADIATES TO THE RIGHT SIDE NECK AND RIGHT SHOULDER. SHE RATES CHEST PAIN A 5/10. SHE RATES EPIGASTRIC PAIN A 4/10. SHE ALSO ADMITS TO MILD, INTERMITTENT SHORTNESS OF BREATH. SHE DENIES FEVER, COUGH, AND DIARRHEA. HER PMH INCLUDES: SEIZURES AND HTN. PAST SURGICAL HISTORY INCLUDES CHOLECYSTECTOMY AND HYSTERECTOMY. ON ARRIVAL TO THE ER, VITALS WERE: 98.3-753-94-100%-192/107. HER LABS WERE OBTAINED. WBC 10.1, RBC 4.51, HGB 13.7, HCT 38.9, PLT COUNT 391, D-DIMER 0.43, SODIUM 138, POTASSIUM 4.0, CHLORIDE 102, CARBON DIOXIDE 25.4, BUN 8, CREATININE 0.86, GLUCOSE 103, CALCIUM 8.5, AST 17, ALT 23, AL PHOS 79, TOTAL PROTEIN 7.6, ALBUMIN 3.9, DILANTIN LESS THAN 0.5. TROPONIN WAS NORMAL AT 4.6. A CHEST XRAY WAS OBTAINED AND REVEALED: 1. No focal consolidation is seen. 2. The heart size is normal. EKG REVEALED SINUS TACHYCARDIA WITH HR 125. IN THE ER, SHE WAS GIVEN A NORMAL SALINE BOLUS X 2 LITERS, TORADOL 30MG IV X 1, ZOFRAN 4MG IV X 1, MORPHINE 4MG IV X 1, ATIVAN 2MG IV X 1, CEREBYX 1500MG IV X 1. SHE WAS ADMITTED TO THE HOSPITAL FOR FURTHER EVALUATION AND TREATMENT OF SVT, CHEST PAIN, EPIGASTRIC PAIN, NAUSEA/VOMITING. - Past Medical History Past Medical History: Hypertension, Seizures - Past Surgical History Surgical History: Cholecystectomy, Hysterectomy - Family History Family Medical History: Diabetes Mellitus - Social History Does patient currently use any type of tobacco product: No Have you used tobacco products in the last 12 months: No Type of Tobacco Use: None Does any household member use tobacco: No Alcohol Use: None Drug Use: None - Medications Home Medications: No Known Drug Allergies Allergy (Verified 09/20/21 15:36) CONTINUE taking the following medications valsartan 80 mg tablet 80 mg PO DAILY HYPERTENSION 05/10/22 [History] - Physical Exam Vital Signs: Temperature 98.2 F Pulse Rate [Left Radial] 91 Pulse Rate 63 Respiratory Rate 20 Blood Pressure [Left Arm] 159/97 Blood Pressure [Right Arm] 162/94 Blood Pressure 84/51 O2 Sat by Pulse Oximetry 93 - Allergies Allergies/Adverse Reactions: Allergies Allergy/AdvReac Type Severity Reaction Status Date / Time No Known Drug Allergies Allergy Verified 09/20/21 15:36
[2022-05-11 02:01] LABS: BASOPHILS # (AUTO) 0.1 X10^3/uL (0.0-0.1); EOSINOPHILS # (AUTO) 0.1 x10^3/uL (0.0-0.2); EOSINOPHILS % (AUTO) 1.2 % (0.9-2.9); HEMATOCRIT 37.5 % (36.0-47.0); HEMOGLOBIN 13.2 g/dL (12.0-16.0); LYMPHOCYTES # (AUTO) 2.1 X10^3/uL (1.3-2.9); LYMPHOCYTES % (AUTO) 23.5 % (21.0-51.0); MEAN CORPUSCULAR HEMOGLOBIN 30.7 pg (27.0-34.0); MEAN CORPUSCULAR HGB CONC 35.2 g/dL (33.0-35.0); MEAN CORPUSCULAR VOLUME 87.2 fL (80.0-100.0); MEAN PLATELET VOLUME 7.8 fL (7.4-11.0); MONOCYTES # (AUTO) 0.6 x10^3/uL (0.3-0.8); MONOCYTES % (AUTO) 6.5 % (0.0-13.0); NEUTROPHILS # (AUTO) 6.1 x10^3/uL (2.2-4.8); NEUTROPHILS % (AUTO) 67.8 % (42.0-75.0); RED BLOOD COUNT 4.31 X10^6/uL (3.5-5.4); RED CELL DISTRIBUTION WIDTH 13.8 % (11.6-16.5); WHITE BLOOD COUNT 8.9 X10^3/uL (3.6-10.0)
[2022-05-11 02:29] LABS: ALANINE AMINOTRANSFERASE 28 Units/L (12-78); ALBUMIN 3.3 g/dL (3.4-5.0); ALKALINE PHOSPHATASE 75 Units/L (46-116); ASPARTATE AMINO TRANSFERASE 23 Units/L (15-37); BLOOD UREA NITROGEN 9 mg/dL (7-18); CALCIUM 8.3 mg/dL (8.5-10.1); CARBON DIOXIDE 27.5 mmol/L (21-32); CHLORIDE 102 mmol/L (98-107); COR CA(FOR HYPOALB) 8.9 mg/dL (8.5-10.1); CREATININE 0.92 mg/dL (0.55-1.02); SODIUM 136 mmol/L (136-145); TOTAL PROTEIN 6.9 g/dL (6.4-8.2); eGFR NON BLACK RACES > 60 (>60)
[2022-05-11] MEDS: PEPCID 20 MG VIAL 20 MG in NS 50 ML IV 50 ML IV SCH ×2 (08:53→20:34)
[2022-05-11] MEDS: PROTONIX INJ 40 MG VIAL IVP SCH ×2 (08:53→20:35)
[2022-05-11] MEDS ORDERED: NS 1,000 ML IV 1,000 ML IV ONE (09:33)
[2022-05-11] MEDS ORDERED: FIORICET TAB PO ONE (09:35)
[2022-05-11] MEDS: TOPROL XL PO SCH (09:35)
[2022-05-11] MEDS: LEVSIN/MAALOX/LIDOC VISC PO SCH ×4 (09:35→20:34)
[2022-05-11] MEDS: NS 1,000 ML IV 1,000 ML IV SCH ×2 (10:20→18:08)
[2022-05-11] MEDS: MOTRIN TAB 800 MG PO PRN (14:05)
[2022-05-11] MEDS ORDERED: MILK OF MAGNESIA PO SCH (21:00)
[2022-05-11] MEDS ORDERED: COLACE CAP 100 MG PO SCH (21:00)
[2022-05-12] MEDS: NS 1,000 ML IV 1,000 ML IV SCH ×2 (03:00→09:30)
[2022-05-12 05:04] LABS: BASOPHILS # (AUTO) 0.1 X10^3/uL (0.0-0.1); BASOPHILS % (AUTO) 0.8 % (0.2-1.0); EOSINOPHILS # (AUTO) 0.2 x10^3/uL (0.0-0.2); EOSINOPHILS % (AUTO) 2.2 % (0.9-2.9); HEMATOCRIT 34.6 % (36.0-47.0); HEMOGLOBIN 12.1 g/dL (12.0-16.0); LYMPHOCYTES # (AUTO) 2.4 X10^3/uL (1.3-2.9); LYMPHOCYTES % (AUTO) 29.6 % (21.0-51.0); MEAN CORPUSCULAR HEMOGLOBIN 30.6 pg (27.0-34.0); MEAN CORPUSCULAR HGB CONC 35.1 g/dL (33.0-35.0); MEAN CORPUSCULAR VOLUME 87.4 fL (80.0-100.0); MONOCYTES # (AUTO) 0.5 x10^3/uL (0.3-0.8); MONOCYTES % (AUTO) 6.6 % (0.0-13.0); NEUTROPHILS % (AUTO) 60.8 % (42.0-75.0); RED BLOOD COUNT 3.95 X10^6/uL (3.5-5.4); RED CELL DISTRIBUTION WIDTH 13.6 % (11.6-16.5); WHITE BLOOD COUNT 8.2 X10^3/uL (3.6-10.0)
[2022-05-12 05:20] LABS: ALANINE AMINOTRANSFERASE 18 Units/L (12-78); ALBUMIN 2.9 g/dL (3.4-5.0); ALKALINE PHOSPHATASE 66 Units/L (46-116); ASPARTATE AMINO TRANSFERASE 14 Units/L (15-37); BLOOD UREA NITROGEN 12 mg/dL (7-18); CALCIUM 7.6 mg/dL (8.5-10.1); CHLORIDE 106 mmol/L (98-107); COR CA(FOR HYPOALB) 8.5 mg/dL (8.5-10.1); SODIUM 139 mmol/L (136-145); eGFR NON BLACK RACES > 60 (>60)
[2022-05-12] MEDS: MOTRIN TAB 800 MG PO PRN (07:10)
[2022-05-12] MEDS: PROTONIX INJ 40 MG VIAL IVP SCH (08:29)
[2022-05-12] MEDS: PEPCID 20 MG VIAL 20 MG in NS 50 ML IV 50 ML IV SCH (08:30)
[2022-05-12] MEDS: LEVSIN/MAALOX/LIDOC VISC PO SCH (08:30)
[2022-05-12 09:26] VITALS: BP 145/83
[2022-05-12] MEDS ORDERED: DIOVAN TAB 80 MG PO ONE (10:00)
== END 2022-05-12 11:15 | disposition home or self-care (01) ==
LOC: ER 17:31 → ICU 17:31
PROVIDERS: ADMIT Internal Medicine; ATTEND Internal Medicine
DX: R26.89 Other abnormalities of gait and mobility; Z20.822 Contact with and (suspected) exposure to COVID-19; R11.10 Vomiting, unspecified; R06.02 Shortness of breath; I10 Essential (primary) hypertension; I47.1 Supraventricular tachycardia; R10.13 Epigastric pain; R94.31 Abnormal electrocardiogram [ECG] [EKG]; R07.89 Other chest pain